=== PATIENT | female | born 2000 | race Two or more races ===

== ENCOUNTER 2019-08-31 15:04 | Emergency (ER) | payer MEDICAID, OTHER ==
[~2019-08-31] VITALS: Ht 160 cm; Wt 81.6 kg
[2019-08-31 15:21] VITALS: BP 142/91
[2019-08-31] MEDS ORDERED: KETOROLAC TROMETH 60MG/2ML VIAL IM ONE (16:00)
== END 2019-08-31 16:45 | disposition home or self-care (01) ==
LOC: ER 15:04
DX: S39.012A Strain of muscle, fascia and tendon of lower back, initial encounter (principal); N30.00 Acute cystitis without hematuria; X50.0XXA Overexertion from strenuous movement or load, initial encounter; Y93.89 Activity, other specified; Y92.098 Other place in other non-institutional residence as the place of occurrence of the external cause; Y99.8 Other external cause status
CPT/HCPCS: 81002; 81025; 96372; 99283; J1885